=== PATIENT | female | born 1995 | race Caucasian/White ===

== ENCOUNTER 2018-01-06 17:05 | Emergency (ER) | payer OTHER, BC ==
--- NOTE | 2018-01-06 18:11 | EDM.PDOC ---
ED HPI GENERAL MEDICAL PROBLEM - General Chief Complaint: Laceration Stated Complaint: CUT FINGER Time Seen by Provider: 01/06/18 17:23 Source of Information: Reports: Patient History Limitations: Reports: No Limitations - History of Present Illness INITIAL COMMENTS - FREE TEXT/NARRATIVE: Patient cut the distal tip of the left 4th finger with a kitchen knife while at [employer] today. Bleeding controlled with direct pressure. Laceration is distal of the nail. Pain is minimal. Tetanus is not up to date per patient. Treatments AEROSPACE ASSEMBLER: Reports: Other (see below) Other Treatments AEROSPACE ASSEMBLER: bandaide Left 4-Ring finger Pain Score (Numeric/FACES): 7 - Related Data Allergies Allergy/AdvReac Type Severity Reaction Status Date / Time Sulfa (Sulfonamide Allergy Rash Verified 01/06/18 17:15 Antibiotics) Home Meds: Home Meds . [No Known Home Meds] 01/06/18 [History] Past Medical History - Past Surgical History HEENT Surgical History: Reports: Adenoidectomy, Myringotomy w Tube(s), Tonsillectomy Social & Family History - Tobacco Use Smoking Status *Q: Current Every Day Smoker Years of Tobacco use: 5 Packs/Tins Daily: 0.4 - Caffeine Use Caffeine Use: Reports: Coffee, Energy Drinks - Recreational Drug Use Recreational Drug Use: No ED ROS GENERAL - Review of Systems Review Of Systems: ROS reveals no pertinent complaints other than HPI. ED EXAM, SKIN/RASH Exam: See Below Exam Limited By: No Limitations General Appearance: Alert, WD/WN, No Apparent Distress Ears: Hearing Grossly Normal Nose: Normal Inspection Throat/Mouth: Normal Voice, No Airway Compromise Neck: Normal Inspection, Supple Respiratory/Chest: No Respiratory Distress, No Accessory Muscle Use Cardiovascular: Normal Peripheral Pulses, Regular Rate, Rhythm Peripheral Pulses: 2+: Radial (L) Extremities: Normal Inspection, Normal Range of Motion, Normal Capillary Refill , Other (2cm deep laceration to the distal tip of the 4th finger just distal of the nailbed. No bleeding present. No sensory changes. ) Neurological: Alert, Oriented, CN II-XII Intact, Normal Cognition, No Motor/ Sensory Deficits Psychiatric: Normal Affect, Normal Mood Skin: Warm, Dry ED SKIN PROCEDURES - Laceration/Wound Repair Left Distal Digit - 4th (Ring) Lac/Wound length In cm: 2 Appearance: Subcutaneous, Clean Distal NVT: Neuro & Vascular Intact Exploration/Debridement/Repair: Wound Explored, In a Bloodless Field, No Foreign Material Found Closed with: Steri-Strips Drain Placement: No Sterile Dressing Applied: Nurse Tetanus Status Addressed: Yes Complications: No Course - Vital Signs Last Recorded V/S: Last Vital Signs Temp 97.5 F 01/06/18 17:14 Pulse 91 01/06/18 17:14 Resp 20 01/06/18 17:14 BP 134/100 H 01/06/18 17:14 Pulse Ox 100 01/06/18 17:14 - Orders/Labs/Meds Orders: Active Orders 24 hr Category Date Time Status Fingers Fourth Digit Lt F3 [CR] Stat Exams 01/06/18 17:46 Ordered - Re-Assessments/Exams Free Text/Narrative Re-Assessment/Exam: X-ray of the affected finger with no acute bony abdomen is noted. Laceration is well approximated. No foreign debris noted. Patient is refusing sutures. I applied Steri-Strips with no complications. Tetanus status per patient is not up-to-date. Departure - Departure Time of Disposition: 18:10 Disposition: Home, Self-Care 01 Condition: Good Clinical Impression: Laceration of finger Qualifiers: Encounter type: initial encounter Finger: ring finger Damage to nail status: without damage Foreign body presence: without foreign body Laterality: left Qualified Code(s): S61.215A - Laceration without foreign body of left ring finger without damage to nail, initial encounter - Discharge Information Instructions: Laceration Care, Adult, [id number], Stitches, Malika, or Adhesive Wound Closure, [id number] Referrals: PCP,None [Primary Care Provider] - Additional Instructions: Laceration with steri-strips Try to keep initial dressing in place for 24 hours After 24 hours, you can gently wash the wound with gentle soap and water Do not submerge the area in water until the steri strips fall out Apply antibiotic ointment and keep the wound covered for first 2-3 days then leave open to air Keep wound covered if there is a chance it can get dirty Return to clinic if signs or symptoms of infection arise, including increased redness, swelling, drainage, or fever Tylenol or Ibuprofen as needed for pain - My Orders Last 24 Hours: My Active Orders 01/06/18 17:46 Fingers Fourth Digit Lt F3 [CR] Stat - Assessment/Plan Last 24 Hours: My Active Orders 01/06/18 17:46 Fingers Fourth Digit Lt F3 [CR] Stat
[2018-01-06] MEDS ORDERED: Diphtheria,Pertussis(Acell),Tetanus Vaccine 0.5 ML SDV IM ONE (18:12)
--- NOTE | 2018-01-07 10:50 | CR ---
Left fourth finger: Four views centered to the left fourth finger were obtained. No fracture or other bony abnormality is seen. Distal soft tissue injury is present. Impression: 1. Soft tissue finding. Nothing acute is otherwise seen. Diagnostic code #2
== END 2018-01-06 18:25 | disposition home or self-care (01) ==
LOC: JD.ED 17:05
DX: S61.215A Laceration without foreign body of left ring finger without damage to nail, initial encounter (principal); F17.210 Nicotine dependence, cigarettes, uncomplicated; W26.0XXA Contact with knife, initial encounter; Y92.511 Restaurant or cafe as the place of occurrence of the external cause; Y99.0 Civilian activity done for income or pay
CPT/HCPCS: 73140-26-F3; 73140-F3; 90471; 90715; 99283; 99284-25